=== PATIENT | male | born 1945 | race Caucasian/White ===

== ENCOUNTER 2017-08-03 19:03 | Emergency (ER) | payer SELFPAY ==
[~2017-08-03] VITALS: Ht 175.3 cm; Wt 127.0 kg
--- NOTE | 2017-08-03 19:03 | NUR ---
BB FAMILY WITH C/O "FELT DIZZY AND FELL; HIT HEAD AND NECK ON DOOR AFTER GETTING OUT OF THE SHOWER". PT DENIES KO. PT STATES HE BECAME DIZZY BUT DID NOT PASS OUT. 5 CM LACERATION NOTED ON L SIDE OF HEAD. NO ACTIVE BLEEDING NOTED AT THIS TIME. PT IS AAOX4. RESP EVEN AND UNLABORED. SKIN PINK AND WARM TO TOUCH. PT WAS WHEELCHAIRED TO ER BED 7. PT ABLE TO STAND UP AND LAY ON BED WITH HELP. NO S/S OR ACUTE DISTRESS NOTED. PT ABLE TO MOVE ALL EXTREMITIES AND DENIES HAVING ANY PAIN. PT PLACED ON CONTINOUS MONITOR AND POX. FALL PRECAUTION MEASURES TAKEN WITH BED IN LOW POSITION AND SIDE RAILS RAISED. PT RESTING COMFORTABLY IN BED WITH FAMILY BEDSIDE. AWAITING MD WHALEY.
--- NOTE | 2017-08-03 19:58 | NUR ---
pt back from radiology. pending ct result.
[2017-08-03] MEDS ORDERED: LIDOCAINE 1% INJ 50 ML MDV IJ ONE (20:01)
[2017-08-03 20:13] LABS: BASOPHILS # (AUTO) 0.1 /CMM (0.0-0.2); BASOPHILS % (AUTO) 0.5 % (0.0-2.0); EOSINOPHILS # (AUTO) 0.2 /CMM (0.0-0.7); EOSINOPHILS % (AUTO) 1.4 % (0.0-6.0); HEMATOCRIT 43 % (39-51); HEMOGLOBIN 14.4 g/dL (13.5-17.5); LYMPHOCYTES # (AUTO) 2.1 /CMM (0.8-4.8); LYMPHOCYTES % (AUTO) 16.1 % (20.0-44.0); MEAN CORPUSCULAR HEMOGLOBIN 31 PG (26.0-33.0); MEAN CORPUSCULAR HGB CONC 34 g/dl (31.0-36.0); MEAN CORPUSCULAR VOLUME 93 fL (80-96); MONOCYTES # (AUTO) 1.1 /CMM (0.1-1.30); MONOCYTES % (AUTO) 8.2 % (2.0-12.0); NEUTROPHILS # (AUTO) 9.8 /CMM (1.8-8.9); NEUTROPHILS % (AUTO) 73.8 % (43.0-81.0); PLATELET COUNT (AUTO) 286 /CMM (150-450); RDW COEFFICIENT OF VARIATION 13.1 (11.5-15.0); RED BLOOD CELL COUNT(AUTO) 4.57 MIL/uL (4.5-6.0); WHITE BLOOD COUNT (AUTO) 13.3 K/uL (4.3-11.0)
[2017-08-03 20:28] LABS: INR 0.9 (0.85-1.15)
[2017-08-03 20:31] LABS: TROPONIN I < 0.017 ng/mL (0.00-0.056)
[2017-08-03] MEDS ORDERED: TDAP [DIPH/PERTUSSIS/TET] 0.5 ML VIAL IM ONE ×2 (21:00→21:28)
--- NOTE | 2017-08-03 21:55 | NUR ---
EMT BEDSIDE FOR WOUND CARE.
[2017-08-03 22:01] LABS: ALANINE AMINOTRANSFERASE 46 U/L (12-78); ALBUMIN 3.6 g/dL (3.4-5.0); ALKALINE PHOSPHATASE 95 U/L (46-116); ASPARTATE AMINOTRANSFERASE 31 U/L (15-37); BILIRUBIN,DIRECT 0.1 mg/dL (0.0-0.2); BILIRUBIN,TOTAL 0.3 mg/dL (0.2-1.0); CALCIUM, SERUM 9.6 mg/dL (8.5-10.1); CARBON DIOXIDE 26 mmol/L (21-32); CREATININE 1.2 mg/dL (0.6-1.3); GLUCOSE 312 mg/dL (74-106); TOTAL PROTEIN, SERUM 7.8 g/dL (6.4-8.2); UREA NITROGEN, BLOOD 26 mg/dL (7-18)
[2017-08-03 22:12] LABS: CHLORIDE 101 mmol/L (98-107); POTASSIUM 4.3 mmol/L (3.5-5.1); SODIUM SERUM 138 mmol/L (136-145)
[2017-08-03 22:33] VITALS: BP 145/80
== END 2017-08-03 22:35 | disposition home or self-care (01) ==
LOC: ER 19:06
DX: S01.01XA Laceration without foreign body of scalp, initial encounter (principal); R42 Dizziness and giddiness; W18.00XA Striking against unspecified object with subsequent fall, initial encounter; Y93.89 Activity, other specified; Y92.091 Bathroom in other non-institutional residence as the place of occurrence of the external cause; Y99.8 Other external cause status
CPT/HCPCS: 36415; 70450-TC; 71045-TC; 80048-TC; 80076-TC; 84484-TC; 85025-TC; 85730-TC; 90715; A4606; A6402; J3490; Z7610

== ENCOUNTER 2017-08-06 06:50 | Inpatient (IN) | payer OTHER ==
[~2017-08-06] VITALS: Ht 172.7 cm; Wt 120.2 kg
--- NOTE | 2017-08-06 07:00 | NUR ---
TO BED 6 A 72 YO MALE PATIENT BIBWIFE C/O LAC TO HEAD S/P GLF MISSING STEP AT 3AM. - KO - NV.PT WAS HERE 2 DAYS AGO FOR LAC ON HEAD WITH EDUARDO. VSS. BREATHING EVEN AND UNLABORED. SKIN WARM AND DRY. GOWNED. COMFORT MEASURES RENDERED. INITIAL WOUND CARE DONE.
--- NOTE | 2017-08-06 07:25 | NUR ---
STARTED A SALINE LOCK ON THE LAC G18, BLOOD DRAWN AND SENT TO LAB.
[2017-08-06] MEDS ORDERED: LIDOCAINE 1%-EPI 1:100,000 50 ML VIAL IJ ONE (07:30)
[2017-08-06] MEDS ORDERED: IV NS 0.9% 500 ML BAG IV ONE (07:30)
[2017-08-06] MEDS ORDERED: LIDOCAINE 1%-EPI 1:100,000 20 ML VIAL ONE (07:39)
[2017-08-06] MEDS ORDERED: INSU100V7 SQ (07:41)
[2017-08-06] MEDS ORDERED: ALLO100T PO (07:41)
[2017-08-06] MEDS ORDERED: DULA0.75 SQ (07:41)
[2017-08-06] MEDS ORDERED: ESCI10TA PO (07:41)
[2017-08-06] MEDS ORDERED: METF500T4 PO (07:41)
[2017-08-06] MEDS ORDERED: AMIO200T2 PO (07:41)
[2017-08-06] MEDS ORDERED: ATOR10TA PO (07:41)
[2017-08-06] MEDS ORDERED: RAMI5CAP PO (07:41)
[2017-08-06 07:42] LABS: BASOPHILS # (AUTO) 0.1 /CMM (0.0-0.2); BASOPHILS % (AUTO) 0.7 % (0.0-2.0); EOSINOPHILS # (AUTO) 0.2 /CMM (0.0-0.7); EOSINOPHILS % (AUTO) 1.8 % (0.0-6.0); HEMATOCRIT 42 % (39-51); HEMOGLOBIN 14.7 g/dL (13.5-17.5); LYMPHOCYTES # (AUTO) 2.2 /CMM (0.8-4.8); LYMPHOCYTES % (AUTO) 16.4 % (20.0-44.0); MEAN CORPUSCULAR HEMOGLOBIN 32 PG (26.0-33.0); MEAN CORPUSCULAR HGB CONC 35 g/dl (31.0-36.0); MEAN CORPUSCULAR VOLUME 93 fL (80-96); MONOCYTES # (AUTO) 0.9 /CMM (0.1-1.30); MONOCYTES % (AUTO) 6.7 % (2.0-12.0); NEUTROPHILS % (AUTO) 74.4 % (43.0-81.0); PLATELET COUNT (AUTO) 315 /CMM (150-450); RDW COEFFICIENT OF VARIATION 12.7 (11.5-15.0); RED BLOOD CELL COUNT(AUTO) 4.57 MIL/uL (4.5-6.0); WHITE BLOOD COUNT (AUTO) 13.4 K/uL (4.3-11.0)
--- NOTE | 2017-08-06 07:45 | NUR ---
Dr Rees at BS for wound suture.
[2017-08-06 07:50] LABS: CALCIUM, SERUM 9.4 mg/dL (8.5-10.1); CARBON DIOXIDE 27 mmol/L (21-32); CHLORIDE 100 mmol/L (98-107); GLUCOSE 228 mg/dL (74-106); INR 0.94 (0.87-1.13); POTASSIUM 4.3 mmol/L (3.5-5.1); SODIUM SERUM 136 mmol/L (136-145); UREA NITROGEN, BLOOD 20 mg/dL (7-18)
[2017-08-06 07:51] LABS: ALCOHOL, BLOOD < 3 mg/dL (0-0)
[2017-08-06 07:55] LABS: TROPONIN I < 0.017 ng/mL (0.00-0.056)
[2017-08-06] MEDS ORDERED: INSULIN GLARGINE, 100 UNIT/ML CARTRIDGE SQ SCH ×3 (09:00→22:00)
--- NOTE | 2017-08-06 09:40 | NUR ---
REPORT GIVEN TO EDIL FITZPATRICK FOR [facility] TELE [id number]
[2017-08-06] MEDS ORDERED: MAGNESIUM HYDROXIDE 30 ML UDC PO PRN (10:30)
[2017-08-06] MEDS ORDERED: HYDROCODONE/APAP 5/325MG 1 EACH TABLET PO PRN (10:30)
[2017-08-06] MEDS ORDERED: AMIODARONE HCL 200 MG TABLET PO SCH (10:30)
[2017-08-06] MEDS ORDERED: ONDANSETRON HCL/PF 4 MG/2 ML VIAL IVP PRN (10:30)
[2017-08-06] MEDS ORDERED: ACETAMINOPHEN 325 MG TABLET PO PRN (10:30)
[2017-08-06] MEDS ORDERED: MAG HYDROX/AL HYDROX/SIMETH 30 ML UDC PO PRN (10:30)
[2017-08-06] MEDS ORDERED: Z GUARD REMEDY 2 OZ OINT TP PRN (10:30)
--- NOTE | 2017-08-06 10:30 | NUR ---
ENDORSE (INSULIN) CARIE TO EDIL FRIEND.
--- NOTE | 2017-08-06 10:50 | NUR ---
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 ALERT AND ORIENTED X 3. VITAL SIGNS STABLE, RESPIRATIONS EVEN AND UNLABORED ON ROOM AT WITH OXYGEN SATURATION OF 95%. PATIENT AMBULATORY WITH BATHROOM PRIVILEGES, ALTHOUGH INSTRUCTED PATIENT TO PUSH THE CALL LIGHT FOR ASSISTANCE WHEN AMBULATING TO THE RESTROOM, PATIENT VERBALIZED UNDERSTANDING. IV LEFT AC 18G PATENT AND FLUSHES EASILY. PATIENT DENIES PAIN OR DISCOMFORT. BED IN LOW POSITION AND LOCKED WITH SIDE RAILS UP X2. CALL LIGHT WITHIN REACH.
[2017-08-06] MEDS ORDERED: IV NS 0.9% 500 ML IV ONE (13:30)
[2017-08-06 14:08] LABS: BILIRUBIN,DIRECT 0.1 mg/dL (0.0-0.2); BILIRUBIN,TOTAL 0.3 mg/dL (0.2-1.0)
[2017-08-06 16:00] VITALS: BP 153/76
[2017-08-06 16:25] LABS: APPEARANCE,URINE CLEAR (CLEAR); BILIRUBIN,URINE NEGATIVE (NEGATIVE); BLOOD, URINE NEGATIVE Ery/uL (NEGATIVE); COLOR,URINE YELLOW (YELLOW); KETONES,URINE NEGATIVE (NEGATIVE); LEUKOCYTE ESTERASE ,URINE NEGATIVE (NEGATIVE); NITRITE, URINE NEGATIVE (NEGATIVE); PH,URINE 5.5 (5.0-8.0); PROTEIN,URINE NEGATIVE (NEGATIVE); UGLUCOSE 2+ mg/dL (NEGATIVE); UROBILINOGEN,URINE 0.2 EU/dL (0.2)
--- NOTE | 2017-08-06 16:51 | NUR ---
PATIENT VERBALIZED HIS DESIRE TO BE DISCHARGED SOON POSSIBLE BECAUSE HE AND HIS TRAVELED HERE FROM [place] IN ORDER TO ATTEND AN ACTIVITY FOR THEIR GRANDCHILDREN AND THEY DO NOT WANT TO STAY IN THE HOSPITAL ANY LONGER THAN THIS AFTERNOON. NOTIFIED GARFIELD HAYNES NP.
[2017-08-06 17:00] LABS: BACTERIA,URINE None seen /HPF (None Seen); RBC,URINE 0-2 /HPF (0-2); SQUAMOUS EPITHELIAL CELL,UR Few /HPF (None Seen); WBC,URINE 0-2 /HPF (0-3)
[2017-08-06] MEDS ORDERED: METFORMIN 500 MG TABLET PO SCH (17:00)
[2017-08-06] MEDS ORDERED: DEXTROSE 50%-WATER 50 ML DISP.SYRIN IV PRN (18:00)
[2017-08-06] MEDS ORDERED: INSULIN REGULAR, HUMAN 100 UNIT/ML 3 ML VIAL SQ PRN (18:00)
[2017-08-06] MEDS ORDERED: IV NS 0.9% 1,000 ML BAG IV SCH (18:30)
[2017-08-06] MEDS ORDERED: IV NS 0.9% 1,000 ML IV PRN (19:30)
--- NOTE | 2017-08-06 19:30 | NUR ---
DISCHARGED HOME AMA WITH STABLE V/S.PT IS FROM [place] AND HE INSISTS TO GO HOME BECAUSE HE WANTS TO ATTEND HIS GRANDCHILDREN'S PERFORMANCE WHICH IS THE REASON WHY THEY CAME HERE TO VISIT.INSPITE OF EXPLAINING THE RISKS,BENEFITS AND CONSEQUENCES OF BEING AMA.REMOVED IV H/L TO LT AC GAUGE WITHOUT BLEEDING NOTED.
--- NOTE | 2017-08-06 20:26 | NUR ---
AMA INCIDENT REPORT [id number]
[2017-08-06] MEDS ORDERED: BLOOD SUGAR DIAGNOSTIC 1 EACH STRIP IN SCH (22:00)
[2017-08-07] MEDS ORDERED: ALLOPURINOL 100 MG TABLET PO SCH (09:00)
[2017-08-07] MEDS ORDERED: ATORVASTATIN 10 MG TABLET PO SCH (09:00)
[2017-08-07] MEDS ORDERED: INSULIN GLARGINE, 100 UNIT/ML CARTRIDGE SQ SCH (09:00)
[2017-08-07] MEDS ORDERED: RAMIPRIL 5 MG CAPSULE PO SCH (09:00)
[2017-08-07] MEDS ORDERED: ESCITALOPRAM OXALATE (10 MG) 10 MG TABLET PO SCH (09:00)
[2017-08-08] MEDS ORDERED: Dulaglutide (Trulicity) 0.75 MG SQ SCH (10:42)
== END 2017-08-06 19:30 | disposition left against medical advice (07) | DRG 604 ==
LOC: ER 06:51 → TELE 09:46
PROVIDERS: ADMIT Nurse Practitioner Acute Care; ATTEND Nurse Practitioner Acute Care
PROC: 0HQ0XZZ Repair Scalp Skin, External Approach (ICD-10-PCS; principal; 2017-08-06)
DX: S01.01XA Laceration without foreign body of scalp, initial encounter (principal); N17.0 Acute kidney failure with tubular necrosis; E87.2 Acidosis; Z68.41 Body mass index [BMI] 40.0-44.9, adult; E11.9 Type 2 diabetes mellitus without complications; D72.829 Elevated white blood cell count, unspecified; W10.9XXA Fall (on) (from) unspecified stairs and steps, initial encounter; E78.5 Hyperlipidemia, unspecified; G47.30 Sleep apnea, unspecified; G89.29 Other chronic pain; I10 Essential (primary) hypertension; M47.9 Spondylosis, unspecified; Z87.442 Personal history of urinary calculi; Z96.652 Presence of left artificial knee joint; E86.0 Dehydration; Z79.84 Long term (current) use of oral hypoglycemic drugs; E66.9 Obesity, unspecified; S01.81XA Laceration without foreign body of other part of head, initial encounter; Y93.9 Activity, unspecified; Y92.009 Unspecified place in unspecified non-institutional (private) residence as the place of occurrence of the external cause; R29.6 Repeated falls
CPT/HCPCS: 36415; 70450-TC; 71045-TC; 72125-TC; 80048-TC; 80305; 81000-TC; 82247-TC; 82248-TC; 82962-TC; 83605-TC; 84484-TC; 85025-TC; 85730-TC; 87040-TC; 87086-TC; 93307-TC; A4606; A6402; G0480; J1815; J3490; J7040; Z7610